=== PATIENT | female | born 1990 | race Caucasian/White ===

== ENCOUNTER 2024-10-04 23:53 | Emergency (ER) | payer MEDICAID ==
[~2024-10-04] VITALS: Ht 165.1 cm; Wt 77.0 kg
[2024-10-05 00:20] VITALS: O2SAT 100
[2024-10-05 00:24] VITALS: BP 150/65; PULSE 57; RESP 18; TEMP 36.7; O2SAT 99
[2024-10-05] MEDS: DIPHENHYDRAMINE 50MG/ML VIAL IM ONE (02:46)
[2024-10-05 02:47] VITALS: TEMP 98.1
[2024-10-05] MEDS: ACETAMINOPHEN 325MG TABLET PO ONE (02:47)
== END 2024-10-05 04:17 | disposition left against medical advice (07) ==
LOC: ER 23:53
DX: R51.9 Headache, unspecified (principal); F31.9 Bipolar disorder, unspecified
CPT/HCPCS: 99283; 96372; J1200; Z7610 ×2

== ENCOUNTER 2024-11-09 23:59 | Emergency (ER) | payer MEDICAID ==
[~2024-11-09] VITALS: Ht 162.6 cm; Wt 82.0 kg
[2024-11-10 00:12] VITALS: O2SAT 100
[2024-11-10 01:06] LABS: CLARITY URINE CLEAR (CLEAR); COLOR URINE YELLOW (YELLOW); GLUCOSE URINE NEGATIVE (NEGATIVE); KETONES URINE NEGATIVE (NEGATIVE); LEUKOCYTE ESTERASE URINE 3+ (NEGATIVE); NITRITE URINE NEGATIVE (NEGATIVE); OCCULT BLOOD URINE TRACE (NEGATIVE); PROTEIN URINE NEGATIVE (NEGATIVE); SPECIFIC GRAVITY URINE 1.006 (1.005-1.030); UROBILINOGEN URINE 0.2 E.U./dL (0.2-1.0)
[2024-11-10 03:11] LABS: RBC URINE 0-2 /hpf (0-2)
[2024-11-10 03:13] LABS: SQUAMOUS EPITHELIAL CELL URINE 1+ /lpf (RARE/1+)
[2024-11-10 03:14] LABS: BACTERIA URINE 1+
[2024-11-10 03:25] VITALS: BP 119/79; PULSE 58; RESP 18; TEMP 36.8; O2SAT 100
[2024-11-10] MEDS ORDERED: NITR-87 MT (04:01)
== END 2024-11-10 04:13 | disposition home or self-care (01) ==
LOC: ER 23:59
DX: R06.02 Shortness of breath (principal); F41.9 Anxiety disorder, unspecified; N39.0 Urinary tract infection, site not specified; Z79.899 Other long term (current) drug therapy
CPT/HCPCS: 71045; 81003; 81025; 99284

== ENCOUNTER 2025-03-29 07:29 | Emergency (ER) | payer MEDICAID ==
[~2025-03-29] VITALS: Ht 162.6 cm; Wt 78.0 kg
[~2025-03-29 07:29] MED LIST: NITR-87 MT
[2025-03-29 07:36] VITALS: O2SAT 100
[2025-03-29] MEDS ORDERED: TOPUD MT (08:30)
[2025-03-29] MEDS ORDERED: IBUP-2437 MT (08:30)
[2025-03-29] MEDS ORDERED: ONDA4TAB50 MT (08:31)
[2025-03-29 08:53] VITALS: BP 121/72; PULSE 73; RESP 14; TEMP 36.7; O2SAT 100
[2025-03-29 09:54] LABS: INFLUENZA TYPE A Presumptive Negative (Pres. Neg.)
[2025-03-29 09:55] LABS: INFLUENZA TYPE B Presumptive Negative (Pres. Neg.)
== END 2025-03-29 08:54 | disposition home or self-care (01) ==
LOC: ER 07:29
DX: B34.9 Viral infection, unspecified (principal); Z79.899 Other long term (current) drug therapy; Z20.822 Contact with and (suspected) exposure to COVID-19
CPT/HCPCS: 81025; 87426; 87804; 99283